=== PATIENT | male | born 1980 | race Asian ===

== ENCOUNTER 2017-07-04 22:22 | Emergency (ER) | payer OTHER ==
[~2017-07-04] VITALS: Ht 157.5 cm; Wt 80.0 kg
[2017-07-05] MEDS ORDERED: TETANUS, DIPHTHERIA, PERTUSSIS VAC/PF 0.5ML (>7YR OLD) IM ONE
[2017-07-05] MEDS ORDERED: AMLODIPINE 2.5MG TABLET PO ONE (00:15)
[2017-07-05 00:56] VITALS: BP 179/106
== END 2017-07-05 00:56 | disposition home or self-care (01) ==
LOC: ER 22:38
DX: S91.331A Puncture wound without foreign body, right foot, initial encounter (principal); I10 Essential (primary) hypertension; W22.8XXA Striking against or struck by other objects, initial encounter; Y93.89 Activity, other specified; Y92.520 Airport as the place of occurrence of the external cause
CPT/HCPCS: 90471; 90715; 99283